=== PATIENT | male | born 1965 | race Caucasian/White ===

== ENCOUNTER → 2021-09-27 | Outpatient (CLI) | payer BC ==
[~2021-09-27] MED LIST: AMLO-187 PO; ASPI-886 PO; GABA600T7 PO; LISI-130 PO; MAGN500C10 PO; MELO15TA23 PO; OXYC1TAB22 PO; TRAM50TA PO
[2021-09-27 12:43] LABS: BASO # 0.1 x10^3/uL (0.0-0.2); BASO % 1 % (0-3); EOS # 0.1 x10^3/uL (0.0-0.7); EOS % 2 % (0-3); HEMATOCRIT 43.1 % (39.0-53.0); HEMOGLOBIN 14.9 g/dL (13.0-17.5); LYMPH # 1.8 x10^3/uL (1.0-4.8); LYMPH % 28 % (24-48); MEAN CORPUSCULAR HEMOGLOBIN 30 pg (25-35); MEAN CORPUSCULAR HGB CONC 35 g/dL (31-37); MEAN CORPUSCULAR VOLUME 87 fL (79-100); MONO # 0.6 x10^3/uL (0.0-1.1); MONO % 10 % (0-9); NEUT # 3.9 x10^3/uL (1.8-7.7); NEUT % 59 % (31-73); PLATELET COUNT 246 x10^3/uL (140-400); RED BLOOD COUNT 4.97 x10^6/uL (4.30-5.70); RED CELL DISTRIBUTION WIDTH 13.7 % (11.5-14.5); WHITE BLOOD COUNT 6.5 x10^3/uL (4.0-11.0)
[2021-09-27 12:52] LABS: ALBUMIN 3.7 g/dL (3.4-5.0); CALCIUM 8.5 mg/dL (8.5-10.1); CREATININE 1.2 mg/dL (0.7-1.3); GFR 62.9; POTASSIUM 3.9 mmol/L (3.5-5.1); TOTAL BILIRUBIN 0.6 mg/dL (0.2-1.0); TOTAL PROTEIN 7.3 g/dL (6.4-8.2)
[2021-09-27 12:53] LABS: PROTHROMBIN TIME PATIENT 12.8 SEC (11.7-14.0)
[2021-09-28 00:08] LABS: HEMOGLOBIN A1C 5.5 % (4.8-5.6)
== END ==
LOC: SURGPAT 11:21
PROVIDERS: ATTEND Neurological Surgery
DX: Z01.812 Encounter for preprocedural laboratory examination (principal); M48.02 Spinal stenosis, cervical region; M54.12 Radiculopathy, cervical region
CPT/HCPCS: 36415; 80053; 83036; 85025; 85610; 85730; 87641

== ENCOUNTER 2021-10-08 07:38 | Inpatient (IN) | payer BC ==
[2021-10-07 09:44] VITALS: BP 141/93
[~2021-10-08] VITALS: Ht 188 cm; Wt 104.9 kg
[2021-10-08] VITALS (9 sets, daily range): BP systolic 119–150; BP diastolic 72–94
[~2021-10-08 07:38] MED LIST changes: +BUPIVACAINE-EPI 0.5% 30 ML VIAL KIT. ONE; +DEXAMETHASONE SOD PHOS 4 MG/ML VIAL ONE; +GELATIN SPONGE SIZE 100. ONE; +HYDROmorphone 2 MG/ML INJ. IVP PRN; +IV RINGERS,LACTATED 1000ML 1,000 ML IV SCH; +MIDAZOLAM HCL/PF 2 MG/2 ML VIAL. ONE; +ONDANSETRON PF 4 MG/2 ML VIAL. ONE; +PHENYLEPHRINE 10 MG/ML VIAL. ONE; +PROCHLORPERAZINE 10 MG/2 ML VIAL. IVP PRN; +PROPOFOL 10 MG/ML (20ML) VIAL. IV ONE; +PROPOFOL 50 ML IV ONE; +REMIFENTANIL 2 MG VIAL. IV ONE; +ROCURONIUM 100 MG/10 ML VIAL. ONE; +SUCCINYLCHOLINE 200 MG/10 ML VIAL. ONE; +THROMBIN TOPICAL 20,000 UNIT SPRAY.SYRN KIT TP ONE; +VANCOMYCIN 1 GM VIAL. ONE; +fentaNYL PF VIAL 100 MCG/2 ML VIAL IVP PRN; +fentaNYL PF VIAL 100 MCG/2 ML VIAL ONE
[2021-10-08] MEDS ORDERED: PROPOFOL 50 ML IV ONE ×2 (07:51→09:24)
[2021-10-08] MEDS ORDERED: ePHEDrine PF IN SALINE 50 MG/10 ML SYRINGE. IV ONE (07:51)
[2021-10-08] MEDS ORDERED: PHENYLEPHRINE in 0.9% NACL PF 1 MG/10 ML SYRINGE. IV ONE (07:51)
[2021-10-08] MEDS ORDERED: DEXMEDETOMIDINE 200 MCG/2 ML VIAL. IV ONE (08:00)
[2021-10-08] MEDS ORDERED: SUGAMMADEX SODIUM 200 MG/2 ML VIAL. IVP ONE (08:00)
[2021-10-08] MEDS ORDERED: GLYCOPYRROLATE 1 MG/5 ML VIAL. ONE (08:28)
[2021-10-08] MEDS ORDERED: REMIFENTANIL 2 MG VIAL. IV ONE (09:01)
[2021-10-08] MEDS ORDERED: ZOLPIDEM 5 MG TABLET. PO PRN (12:30)
[2021-10-08] MEDS ORDERED: NALOXONE 0.4 MG/ML VIAL. IV PRN ×2 (12:30)
[2021-10-08] MEDS ORDERED: ONDANSETRON PF 4 MG/2 ML VIAL. IVP PRN (12:30)
[2021-10-08] MEDS ORDERED: IV NORMAL SALINE 1000ML BAG 1,000 ML IV SCH (12:30)
[2021-10-08] MEDS ORDERED: MAGNESIUM HYDROXIDE 2,400 MG/30 ML ORAL.SUSP. PO PRN (12:30)
[2021-10-08] MEDS ORDERED: fentaNYL PF VIAL 100 MCG/2 ML VIAL IVP PRN ×2 (12:30)
[2021-10-08] MEDS ORDERED: ACETAMINOPHEN 325 MG TABLET. PO PRN (12:30)
[2021-10-08] MEDS ORDERED: 0.9 % SODIUM CHLORIDE 10 ML DISP.SYRIN. IV PRN (12:30)
[2021-10-08] MEDS ORDERED: diphenhydrAMINE HCL 25 MG CAPSULE PO PRN (12:30)
[2021-10-08] MEDS ORDERED: MAG HYDROX/ALUMINUM HYD/SIMETH 30 ML ORAL.SUSP PO PRN (12:30)
[2021-10-08] MEDS ORDERED: CALCIUM CARBONATE 500 MG TAB.CHEW PO PRN (12:30)
[2021-10-08] MEDS ORDERED: diphenhydrAMINE 50 MG/ML VIAL IV PRN (12:30)
--- NOTE | 2021-10-08 12:30 | PDOC4 ---
BRIEF OPERATIVE NOTE Date: Oct 08, 2021 Pre-Op Diagnosis cervical stenosis, cervical disk herniation, cervical radiculopathy Post-Op Diagnosis same Procedure Performed anterior cervical discectomy and fusion C5-6-7 Anesthesia Type: General Blood Loss 20mL Specimens Obtained disk and decompression Findings stenosis and disk herniations C5-6 and C6-7 Complications none apparent BABATUNDE DOOLEY MD Oct 08, 2021 12:30
[2021-10-08] MEDS ORDERED: SEVOFLURANE > 120 MINUTES. IH ONE (12:55)
[2021-10-08] MEDS ORDERED: HYDROmorphone 2 MG TABLET PO PRN (13:00)
[2021-10-08] MEDS ORDERED: MORPHINE SULFATE 2 MG/ML INJ. ONE (13:10)
[2021-10-08] MEDS: MORPHINE SULFATE 2 MG/ML INJ. IVP PRN ×2 (13:12→13:25)
[2021-10-08] MEDS ORDERED: HYDROmorphone 2 MG/ML INJ. ONE (13:38)
[2021-10-08] MEDS: MULTIVITAMIN with MINERAL TABLET. PO SCH (14:00)
[2021-10-08] MEDS: HYDROmorphone 2 MG TABLET PO PRN ×2 (14:43→20:08)
[2021-10-08] MEDS: METHOCARBAMOL 750 MG TABLET PO SCH ×2 (14:44→20:07)
[2021-10-08] MEDS ORDERED: LISINOPRIL 20 MG TABLET PO SCH ×2 (15:00→21:00)
[2021-10-08] MEDS: FERROUS SULFATE 325 MG TABLET. PO SCH (17:54)
[2021-10-08] MEDS: CALCIUM CARB/VIT D3 500/200 TABLET. PO SCH (17:54)
[2021-10-08] MEDS: SENNOSIDES/DOCUSATE 8.6/50MG TABLET. PO SCH (20:04)
[2021-10-08] MEDS: DOCUSATE SODIUM 100 MG CAPSULE. PO SCH (20:09)
[2021-10-08] MEDS ORDERED: GABAPENTIN 300 MG CAPSULE. PO SCH (21:00)
[2021-10-09] MEDS: HYDROmorphone 2 MG TABLET PO PRN ×2 (00:26→06:00)
[2021-10-09 06:41] VITALS: BP 144/88
[2021-10-09] MEDS: SENNOSIDES/DOCUSATE 8.6/50MG TABLET. PO SCH (08:18)
[2021-10-09] MEDS: FERROUS SULFATE 325 MG TABLET. PO SCH (08:18)
[2021-10-09] MEDS: METHOCARBAMOL 750 MG TABLET PO SCH (08:18)
[2021-10-09] MEDS: DOCUSATE SODIUM 100 MG CAPSULE. PO SCH (08:18)
[2021-10-09] MEDS: CALCIUM CARB/VIT D3 500/200 TABLET. PO SCH (08:18)
--- NOTE | 2021-10-09 08:20 | PDOC ---
Date of Service: DATE: 10/09/21 TIME: 08:17 Progress Note: S: Reports resolution of arm pain. Eating/swallowing without difficulty. O: AF/VSS, AAOx4, NAD, speech fluent with good phonation, SLATER 5/5, sensation in tact LT, dressing c/d/i, flat A: POD 1 C5-7 ACDF P: d/c home with standard post-op restrictions Justifications for Admission Other Justification BABATUNDE DOOLEY MD Oct 09, 2021 08:19
[2021-10-09] MEDS ORDERED: METH-562 PO (08:28)
[2021-10-09] MEDS ORDERED: SENN-209 PO (08:28)
[2021-10-09] MEDS ORDERED: HYDR2TAB31 PO (08:28)
[2021-10-09] MEDS: MULTIVITAMIN with MINERAL TABLET. PO SCH (09:00)
--- NOTE | 2021-10-09 09:00 | NUR ---
No c/o at this time. Ambulating in hallways getting coffee. Cont. monitor.
--- NOTE | 2021-10-09 10:30 | NUR ---
Discharge instructions given. Answered questions and concerns. Both patient and spouse verbalized understanding. Pain medication given prior to discharge. Escorted out by w/c.
--- NOTE | 2021-10-10 16:07 | PATHOLOGY ---
[facility] Accession Number: [id number] . 01 Material submitted: . vertebral column - DISC AND DECOMPRESSION . 01 Clinical history: . ACDF C5-C7 . 02 Diagnosis: Segments of fibrocartilaginous tissue and minute segments of bone, disc and decompression: - Degenerative changes of fibrocartilaginous tissue. 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 02 Comment: There is no evidence of an acute inflammatory process or malignancy. 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 02 Electronically signed: . Mook Torres MD, Pathologist NPI- [id number] . 01 Gross description: . The specimen is received in formalin, labeled "Harms, Baldo, disc and decompression". Received are multiple segments of pale mcginnis to pink-mcginnis gritty tissue with possible admixed small fragments of gritty bone, measuring 3.3 x 2.6 x 0.6 cm in aggregate dimensions. The specimen is submitted representatively in cassette A1, following light decalcification. ([facility]; 10/09/2021) [facility] 10/10/2021 1031 Local . 02 Pathologist provided ICD-10: M50.322, M50.323 . 02 CPT . 060000, [id number] Specimen Comment: A courtesy copy of this report has been sent to [phone], [phone] Specimen Comment: [id number] Specimen Comment: Report sent to / DR SINGLETARY Specimen Comment: A duplicate report has been generated due to demographic updates. Performed at: 01 [facility] [address], [place] [id number] MD Bong العراقي MD Phone: [phone] Performed at: [address] [id number] MD Mook Torres MD Phone: [phone]
--- NOTE | 2021-10-15 13:12 | OP ---
DATE OF SURGERY: 10/08/2021 SURGEON: Nuno Estrada MD MEDICAL PAYMENT POSTER: None. PREOPERATIVE DIAGNOSIS: Cervical stenosis with cervical radiculopathy, cervical myelopathy with a disk herniation at C5-C6 and C6-C7. POSTOPERATIVE DIAGNOSIS: Cervical stenosis with cervical radiculopathy, cervical myelopathy with a disk herniation at C5-C6 and C6-C7. PROCEDURE: Anterior cervical diskectomy and fusion with anterior instrumentation of C5, C6 and C7 with use of structural allograft interbody spacers. ANESTHESIA: General. COMPLICATIONS: None. INDICATIONS FOR THE PROCEDURE: The patient is a 56-year-old male who has asymptomatic cervical stenosis with myelopathy localized to disk osteophyte complexes with underlying disk herniation at C5-C6 and C6-C7. Please refer to the patient's chart for additional detail. DESCRIPTION OF PROCEDURE: After informed consent was obtained, the patient was brought into the operating room. He was placed under general anesthesia. He was placed in the supine position with a shoulder bump under both the shoulders. Head was placed in very slight extension. Neuromonitoring was instituted and baseline potentials were obtained. Appropriate incision location was localized with fluoroscopy. The anterior neck was then prepped and draped in the usual sterile fashion. A horizontal incision centered over the region of C6 was made with a 15 blade scalpel. Blunt dissection techniques were utilized to dissect the underlying soft tissues. The platysma was sharply divided in the plane of the incision. The blunt dissection techniques were subsequently utilized to develop the plane between the tracheoesophageal complex medially and the carotid sheath laterally to approach the anterior cervical spine. The prevertebral fascia was taken down with a Kitner and fluoroscopy was utilized to verify the appropriate level. The longus colli muscles were gently cauterized and utilized to protect the adjacent structures from self retainer. Self-retainers were inspected and distraction pins were instituted first at C6 and then at C5. Distraction was instituted across this level. The annulus was incised with an 11 blade scalpel and diskectomy was performed with Kerrison and pituitary rongeurs. The endplates were dissected and prepared with a curette. The underlying anterior longitudinal ligament was taken down with Kerrison upon completion and the anterior osteophytes were taken down with Kerrison rongeur as well. Upon completion of the diskectomy, the thecal sac was readily visualized and noted to be well decompressed. This was verified with direct visualization as well as gentle palpation with a blunt nerve hook. Then appropriate sized structural allograft was determined with spacers and a structural allograft was instituted at C5-C6 and tamped gently into place with good anatomical contour. The distraction was removed and the distraction pin from C5 was removed. Hemostasis was achieved with bone wax. Distraction pins were subsequently placed at C7 and distraction was instituted across C6-C7. Annulotomy was performed with an 11 blade scalpel and the pituitary rongeur as well as Kerrison rongeur was utilized to perform the diskectomy. The posterior longitudinal ligament was taken down with Kerrison rongeur and the osteophytes were taken down with Kerrison rongeur. The endplates were prepared with a curette and the disk scraper. Upon completion of the diskectomy, the thecal sac was noted to be very well decompressed. This was verified under direct visualization as well as gentle palpation with a blunt nerve hook. Spacers were instituted to determine appropriate graft size and a structural allograft was instituted at C6-C7. Once this was gently tamped into place with good anatomical contour, the distraction pins were removed and hemostasis was achieved from the distraction pin sites with bone wax. Then appropriate size anterior cervical plate was instituted with good anatomical contour and secured to the bodies of C5, C6 and C7 with two self-tapping screws at each location. The screws were instituted and locked according to board of education secretary's specification. The construct was visualized on fluoroscopy and noted to be in good position at the proper level. Upon completion of this, the wound was generously irrigated with antibiotic irrigation prior to final closure. Pristine hemostasis was achieved with FloSeal, cottonoids, irrigation and some minimal use of bipolar electrocautery. The platysma was then reapproximated with 3-0 Vicryl in a simple interrupted fashion. Subcutaneous tissue was reapproximated with 3-0 Vicryl in an interrupted inverted fashion. The skin was reapproximated with 4-0 Vicryl in a running subcuticular fashion. Mastisol and Steri-Strips were applied and the wound was dressed with Telfa and Tegaderm. At the end of the procedure, all needle and sponge counts were correct x 2. The patient was extubated in the operating room and taken to recovery in stable condition. Neuromonitoring potentials were noted to be improved compared to baseline upon completion of the procedure. FANI/EMI DR: Priya TID: [id number]
== END 2021-10-09 10:30 | disposition home or self-care (01) | DRG 472 ==
LOC: SURG 07:38 → 4 SOUTHEST 12:30
PROVIDERS: ADMIT Neurological Surgery; ATTEND Neurological Surgery
PROC: 0RB30ZZ Excision of Cervical Vertebral Disc, Open Approach (ICD-10-PCS; 2021-10-08)
PROC: 00NW0ZZ Release Cervical Spinal Cord, Open Approach (ICD-10-PCS; 2021-10-08)
PROC: 4A11X4G Monitoring of Peripheral Nervous Electrical Activity, Intraoperative, External Approach (ICD-10-PCS; 2021-10-08)
PROC: 0RG20A0 Fusion of 2 or more Cervical Vertebral Joints with Interbody Fusion Device, Anterior Approach, Anterior Column, Open Approach (ICD-10-PCS; principal; 2021-10-08 09:00)
DX: M48.02 Spinal stenosis, cervical region (principal); G99.2 Myelopathy in diseases classified elsewhere; Z98.1 Arthrodesis status; I10 Essential (primary) hypertension; Z83.3 Family history of diabetes mellitus; Z82.49 Family history of ischemic heart disease and other diseases of the circulatory system; M50.122 Cervical disc disorder at C5-C6 level with radiculopathy; M50.123 Cervical disc disorder at C6-C7 level with radiculopathy; M25.78 Osteophyte, vertebrae; Z20.822 Contact with and (suspected) exposure to COVID-19; Z88.8 Allergy status to other drugs, medicaments and biological substances
CPT/HCPCS: 76000; A4213; A4222; A4223; A4364; A4452; A4556; A4930; A6254; A6258; A6402; C1713; J0330; J0690; J1100; J1170; J2250; J2270; J2370; J2405; J2704; J3010; J3370; J3490; 97530-GP; G0378